=== PATIENT | male | born 1975 | race Caucasian/White ===

== ENCOUNTER 2019-07-22 14:01 | Inpatient (IN) | payer BC, SELFPAY ==
[2019-07-22] VITALS (13 sets, daily range): BP systolic 116–164; BP diastolic 68–111; PULSE 82–108; RESP 16–18; TEMP 36.6–38.1; O2SAT 92–100; BMI 39.8
--- NOTE | 2019-07-22 | COL_PTH ---
PATIENT: AKSHAT VALENCIA LOC: MS3 U#:[id number] AGE/SX: 44/M ROOM: DC314 RE07/22/[address]: Dr. Frankie Hickman MD : 1975 BED: 1 DIS: 07/25/2019 SPEC #: [id number] RECD: 07/22/19 20:17 STATUS: RADHA REAdair #: [id number] SANDRA: 07/22/19 00:[address]: Frankie Hickman DEPT: SURGICAL PATHOLOGY RECD BY: Akshat Butt ENTERED: 07/24/19 08:18 SP TYPE: COLON OTHR DR: Dr. Chago Campos MD Tissues: A - Colon, NOS B - Colon Donuts Procedures: Surgery Specimen Level IV Surgery Specimen Level V HEADER OPERATION: Laparoscopy converted to open sigmoid colectomy PRE-OP DIAGNOSIS: Perforation of sigmoid colon due to diverticulitis TISSUE SUBMITTED: A - Sigmoid colon, B - Donuts MICROSCOPIC DIAGNOSIS A. Sigmoid colon, segmental colectomy: Diverticular disease of colon. One out of one lymph node with no pathologic change. Subserosal microabscess and acute serositis. B. Mucosal donuts, excision: No pathologic change. AM:paz 07/25/19 MICROSCOPIC DESCRIPTION Slides are reviewed. GROSS DESCRIPTION A - Received in fixative is one container labeled with the patient's name and designated sigmoid colon. The specimen consists of a 10.3 cm segment of bowel with permanent fat wrapping. No gross perforations are identified. Also present separate in the specimen container is a 2.5 cm segment of bowel with an average diameter of 2 cm. Serial sections do not reveal mass lesions in either of the bowel segments. The pericolic soft tissue in an area measuring 2 x 2 x 1.5 cm is grayish-isbell in color and indurated; however, no distinct mass lesion is identified. Serial sections reveal multiple diverticula and none of which appear to have perforated through the bowel well. Cnc Operator Machinist sections are submitted in six cassettes as follows: 1-5 - diverticula with adjacent soft tissue, 6 - pericolic fatty tissue with area of induration. B - Received in fixative is one container labeled with the patient's name and designated donuts. The specimen consists of one mucosal donut measuring 1.5 cm in diameter and 1.2 cm in thickness. No mass lesions are identified. Also present in the specimen container are two irregular fragments of isbell tissue resembling portions of mucosal donut. These fragments in aggregate measure 2 x 1.5 x 0.5 cm. These fragments are inked and submitted along with claims customer service representative sections of the identifiable mucosal donut in one cassette. / AM:paz 07/24/19 TC:2 CPT: 17520, 75086
--- NOTE | 2019-07-22 14:14 | CT_ITS ---
We are attempting to reach an attending provider to discuss findings. An addendum with communication details will be sent when the communication is complete. STUDY: CT ABDOMEN AND PELVIS WITHOUT CONTRAST REASON FOR EXAM: Male, 44 years old. Groin/scrotal pain today, bladder spasms, prior umbilical hernia repair. RADIATION DOSAGE (If Supplied By Facility): CTDIvol = ( 23.04 ) mGy, DLP = ( 1513.93 ) mGycm TECHNIQUE: Transaxial images were obtained from the dome of the diaphragm to the symphysis pubis without oral contrast, and without intravenous contrast. Sagittal and coronal images were reconstructed. Individualized dose optimization techniques were used for this CT. COMPARISON: None. FINDINGS: The visualized lung bases are unremarkable. The visualized portions of the heart are within normal limits. There is decreased attenuation of the liver consistent with steatosis. Normal gallbladder and extrahepatic biliary system. Normal spleen. Normal pancreas. Normal bilateral adrenal glands. Normal right kidney. Normal left kidney. Normal visualized stomach. Normal small intestine. There is diverticulosis, with thickening of the sigmoid (axial image #160 series 2) wall, and pericolonic inflammation changes consistent with acute diverticulitis. There is adjacent extraluminal air, consistent with perforation. There is free air ventral to the liver as well. There is no abscess. The appendix is visualized and appears normal. Normal abdominal aorta. Normal inferior vena cava. Normal retroperitoneum. Normal urinary bladder. Normal abdominal wall. There are diffuse degenerative changes of the visualized lumbar spine. CT/Abdomen/Pelvis without Cont IMPRESSION: Acute diverticulitis with perforation and free intraperitoneal air. Electronically Signed: Sivan Rincon MD at 15:21 EST Tel , Service support ,
[2019-07-22 14:38] LABS: Absolute Lymphocyte Count 1.05 X10^3/uL (0.83-4.51); Absolute Neutrophil Count 10.8 X10^3/uL (2.0-7.7); Basophil# 0.03 X10^3/uL; Basophil% 0.2 % (0-1); Eosinophil# 0.07 X10^3/uL; Eosinophils% 0.6 % (0-5); Hematocrit 48.5 % (40-54); Hemoglobin 15.9 g/dL (13.0-16.5); Lymphocyte # 1.05 X10^3/ul (4.0); Lymphocyte % 8.3 % (19-41); Mean Corp Hgb Conc 32.8 g/dL (32-36); Mean Corpuscular Hgb 30.6 pg (27.0-32.0); Mean Corpuscular Volume 93.4 fL (80-94); Mean Platelet Vol. 11.3 fl (6.2-12.0); Monocyte# 0.64 X10^3/uL; Monocyte% 5.1 % (0-10); NRBC Flagged by Analyzer 0 % (0-5); Neutrophil # 10.78 X10^3/uL (2.7-7.7); Neutrophil % 85.5 % (47-70); Platelet Count 181 K/mm3 (150-450); RBC Distribution Width CV 12.8 % (11.6-14.6); RBC Distribution Width SD 43.8 fl (35.1-43.9); Red Blood Count 5.19 M/mm3 (4.6-6.2); White Blood Count 12.6 K/mm3 (4.4-11.0)
[2019-07-22] MEDS: Ketorolac 30 MG/ML Syringe IV (14:42)
[2019-07-22] MEDS: Ondansetron 4 MG/2 ML Vial IV (14:43)
[2019-07-22] MEDS: Morphine 4 MG/ML Syringe IV ×2 (14:44→16:27)
[2019-07-22] MEDS: 0.9% Normal Saline 1,000 ML 250 ML IV (14:46)
[2019-07-22 14:57] LABS: Anion Gap 4 (5-15); BUN 16 mg/dL (7-18); BUN/Creat Ratio 14.3 RATIO (10-20); Calcium,Total 9.1 mg/dL (8.5-10.1); Chloride 110 mmol/L (98-107); Creatinine, Serum 1.12 mg/dL (0.70-1.30); EST Glomerular Filtration Rate 75 mL/min (>60); Est Glom Filt Rate - Afr Amer 91 mL/min (>60); Estimated Creatinine Clearance 96.84 ml/min; Glucose 103 mg/dL (74-106); Potassium 3.7 mmol/L (3.5-5.1); Sodium Level 143 mmol/L (136-145)
--- NOTE | 2019-07-22 15:37 | EKG12_ITS ---
Test Reason : PREOP Blood Pressure : / mmHG Vent. Rate : 104 BPM Atrial Rate : 104 BPM P-R Int : 138 ms QRS Dur : 096 ms QT Int : 346 ms P-R-T Axes : 052 058 016 degrees QTc Int : 454 ms Sinus tachycardia Otherwise normal ECG Confirmed by MARILU DMUONT MD ([id number]), newspaper photo editor MONICA BETANCUR ([id number]) on 07/24/2019 3:14:54 PM Referred By: APTL
--- NOTE | 2019-07-22 15:42 | ED.VIS.GI ---
History of Present Illness Informant: Patient - Abdominal Pain/Flank Pain Onset: Days - 3 days Context: Gradual Onset Timing: Continuous Quality: Aching, Dull Location: - - Suprapubic Current Severity: Severe Maximum Severity: Severe Worsened by: Car ride, Movement Relieved by: Remaining Still - Nausea/Vomiting/Emesis GI Symptom: Nausea. Negative for: Vomiting - Diarrhea/Melena/Hematochezia GI Symptom: Negative for: Diarrhea, Melena, Hematochezia Associated Symptoms: Frequency, Urgency. Negative for: Dysuria, Hematuria Narrative: 44-year-old male presents to the emergency department with abdominal pain. It is mostly in his suprapubic area. It radiates to his groin. It is been there for about 3 days and has progressively worsened. He initially saw his primary care physician. He had a urinalysis done that showed hematuria he was given pain medications. His symptoms have worsened which prompted his visit to the emergency department. Prior to arrival he developed chills and nausea. He feels lightheaded. No vomiting. No documented fever. No diarrhea melena or hematochezia. He has a lot of frequency and urgency of urination but no dysuria or hematuria. No history of kidney stones. No testicular pain or swelling. The pain does not radiate into his legs. He denies any lower extremity numbness tingling or weakness. Prior similar symptoms: No Recent Illness/Hospitalization: No <Frankie Venegas - Last Filed: 07/22/19 16:19> <Stefan Zuleta - Last Filed: 07/22/19 20:28> Chief Complaint: Male Pain/Injury Past Medical History Past Medical History: - - Asthma, diverticulitis Lives: With Family Smoking Status: Never smoker Alcohol: Occasional Drugs: None - Family History Maternal Family History: Reports: No pertinent history <Frankie Venegas - Last Filed: 07/22/19 16:19> <Stefan Zuleta - Last Filed: 07/22/19 20:28> - Allergies and Home Meds Allergies/Adverse Reactions: Allergies No Known Allergies Allergy (Verified 12/04/14 16:15) Review of Systems All systems negative except as indicated General: Reports: Chills, Fever, Malaise Eyes: Denies: Visual changes - bilaterally, Blurred Vision - bilaterally, Diplopia ENT: Denies: Rhinorrhea, Sore throat Cardiovascular: Denies: Chest pain, Palpitations, Heart racing Respiratory: Denies: Dyspnea, Cough, Sputum Gastrointestinal: Reports: Abdominal pain, Nausea. Denies: Vomiting, Diarrhea, Constipation, Melena, Hematochezia Genitourinary: Reports: Frequency. Denies: Dysuria, Hematuria Musculoskeletal: Denies: Myalgias, Arthralgias, Neck pain, Back pain, Extremity Pain Skin: Denies: Rash, Abscess, Abrasions, Wounds Neurological: Denies: Headache, Weakness, Parasthesia, Numbness Hematologic: Denies: Easy bruising, Easy bleeding <Frankie Venegas - Last Filed: 07/22/19 16:19> Physical Exam Vital Signs/Narrative: Vital Signs Temp Pulse Resp BP Pulse Ox 07/22/19 14:02 97.9 F 82 16 153/85 H 100 Inital Vital Signs reviewed: Yes General: Well nourished, Well developed, No Acute Distress Head: Normocephalic, Atraumatic Eyes: Perrl, EOMI ENT: Moist mucous membranes Neck: Supple, Nontender Cardiovascular: Regular rate, Regular rhythm, No murmurs Respiratory: No distress, CTA bilaterally, Chest nontender Abdomen: Soft, Normal bowel sounds, No masses, Tender - Patient is diffusely tender on palpation but worse in the right and left lower quadrant as well as suprapubic region. There was no guarding or rebound tenderness noted.. Negative for: Guarding, Rebound tenderness Back: Nontender, Normal Inspection Extremities: Nontender, No edema Skin: Normal color, No rash Neurological: Alert, Oriented x3 Psychological: Normal affect, Normal Mood <Frankie Venegas - Last Filed: 07/22/19 16:19> Diagnostic/Tx/Re-eval CT: Abdomen and Pelvis - Medical Decision Making Patient was given IV fluids, morphine and Zofran. CBC, BMP remarkable for an elevated white blood cell count 12.6. CT scan abdomen and pelvis was obtained. I was contacted by the radiologist who told me that the patient has acute diverticulitis with perforation and free intraperitoneal air. I spoke with our on-call surgeon Dr. Hickman. He reviewed the CT scan and he states that he will take the patient to the operating room for further management. We did obtain blood cultures and a lactic acid. He was given IV Zosyn. His pain is under control at this time on serial repeat examinations. Impressions Abdomen/Pelvis CT 07/22/19 14:14 IMPRESSION: Acute diverticulitis with perforation and free intraperitoneal air. Electronically Signed: Sivan Rincon MD at 15:21 EST Tel , Service support , ADDENDUM: 07/22/19 1534 IMPRESSION: Acute diverticulitis with perforation and free intraperitoneal air. N.B. : The above information has been verbally conveyed by Sivan Rincon MD to TRACI Quintana, on 07/22/2019 15:27:57 (ET). Electronically Signed: Sivan Rincon MD at 15:21 EST Tel , Service support , 07/22/19 14:14 Abdomen/Pelvis without Cont [CT] Stat Laboratory Results 07/22/19 07/22/19 14:31 14:31 WBC 12.6 H RBC 5.19 Hgb 15.9 Hct 48.5 MCV 93.4 MCH 30.6 MCHC 32.8 RDW Std Deviation 43.8 RDW Coeff of Emir 12.8 Plt Count 181 MPV 11.3 Immature Gran % (Auto) 0.300 Neut % (Auto) 85.5 H Lymph % (Auto) 8.3 L Mccone % (Auto) 5.1 Eos % (Auto) 0.6 Baso % (Auto) 0.2 Absolute Neuts (auto) 10.8 H Absolute Lymphs (auto) 1.05 Nucleated RBC % 0 Sodium 143 Potassium 3.7 Chloride 110 H Carbon Dioxide 29.0 Anion Gap 4 L BUN 16 Creatinine 1.12 Estim Creat Clear Calc 96.84 Est GFR (MDRD) Af Amer 91 Est GFR (MDRD) Non-Af 75 BUN/Creatinine Ratio 14.3 Glucose 103 Calcium 9.1 <Frankie Venegas - Last Filed: 07/22/19 16:19> - Medical Decision Making Attending note: Seen and evaluated with yardmaster. Agree with plan of work-up. Performed on [id number] evaluation. Increasing lower abdominal pain past 4 days. No fevers. Pain into his scrotum. Worsening pain today came to the ED. History of diverticulitis 2015. Patient examined myself after pain medicines and work-up, abdomen was soft, no diffuse tenderness. Work-up noted white count 12.6, CT scan abdomen pelvis noted sigmoid diverticulitis with perforation and free air. Nontoxic, symptoms current controlled, cultures were sent in the lab, he started on Zosyn. He had previously seen [facility] surgeon Dr. Sousa, who currently does not cover at this hospital anymore. Discussed options and he would like [facility] surgeons therefore on-call physician Dr. Messer was contacted evaluate patient and patient taking to the OR. Critical CARE time: 40 minutes <Stefan Zuleta - Last Filed: 07/22/19 20:28> Critical care time (excluding procedures): Discussing w/Patient &/or Family/Court Bailiff Or Sheriff <Stefan Zuleta - Last Filed: 07/22/19 20:28> ED Disposition <Frankie Venegas - Last Filed: 07/22/19 16:19> <Stefan Zuleta - Last Filed: 07/22/19 20:28> - Plan for ED Patient: Disposition: Acute Care Hospital [facility] Diagnosis: Acute diverticulitis of intestine, Free intraperitoneal air, Sepsis
[2019-07-22 16:04] LABS: Lactic Acid 1.3 mmol/L (0.4-1.9)
--- NOTE | 2019-07-22 16:08 | PCM.HP.STD ---
Problem List (1) Perforation of sigmoid colon due to diverticulitis Status: Acute History of Present Illness Date of Admission: 07/22/19 The patient is a 44 year old M with abdominal pain since 3 days ago. The patient reports that he has been having lower suprapubic pain for 3 days with no fevers or chills. He has had diverticulitis in the past and has had a colonoscopy subsequent to that. Past Medical History Allergies No Known Allergies Allergy (Verified 12/04/14 16:15) Home Medications: Ambulatory Orders Medication Instructions Recorded Hydrocodone Bitart/Apap 5-325 1 - 2 tablet PO Q4H PRN PRN #12 12/04/14 [Aurelia 5/325] tablet DiphenhydrAMINE [Benadryl] 50 mg PO Q6H #30 capsule 02/05/15 Famotidine [Pepcid] 20 mg PO BID #10 tablet 02/05/15 predniSONE tablet 60 mg PO DAILY #15 tablet 02/05/15 Albuterol IH (ProAir) [Proair Hfa 1 - 2 puff INHALATION Q4H PRN PRN 07/22/19 (SP)Vent Pts] Surgical History: herniorrhaphy - Umbilical hernia repair with no mesh Lives: With Family Smoking Status: Never smoker Alcohol: Occasional Drugs: None - *Family History Maternal History Items: No pertinent history Review of Systems Constitutional: Denies: Anorexia, Fever Eyes: Denies: Blurred vision HEENT: Denies: Difficulty Swallowing Cardiovascular: Denies: Chest Pain, Chest Tightness Respiratory: Denies: Cough, Shortness of Breath Gastrointestinal: Reports: Abdominal Pain. Denies: Constipation, Diarrhea, Nausea, Vomiting Skin: Denies: Jaundice Psychiatric: Denies: Anxiety Hematologic/ Lymphatic: Denies: Anemia VTE Information - Inpt Only VTE Present on Admission: No VTE Mechan Device Prophylaxis: SCD's Patient Problems: Active and Suspected Problems Acute diverticulitis of intestine (Acute) Free intraperitoneal air (Acute) Sepsis (Acute) Perforation of sigmoid colon due to diverticulitis (Acute) - Physical Exam Vitals/I&O's: Vital Signs Temp Pulse Resp BP Pulse Ox 99.3 F H 106 H 16 135/111 H 98 07/22/19 16:06 07/22/19 16:06 07/22/19 16:06 07/22/19 16:06 07/22/19 16:06 Oxygen Delivery Method Room Air Weight: 310 lb Body Mass Index (BMI) 39.8 General: Alert, Oriented x3 Neck: No JVD Lungs: Normal air movement Cardiovascular: Regular rate, Regular Rhythm Abdomen: Soft, Non-Distended, Tender Laboratory Results 07/22/19 14:31: WBC 12.6 H, RBC 5.19, Hgb 15.9, Hct 48.5, MCV 93.4, MCH 30.6, MCHC 32.8, RDW Std Deviation 43.8, RDW Coeff of Emir 12.8, Plt Count 181, MPV 11.3, Immature Gran % (Auto) 0.300, Neut % (Auto) 85.5 H, Lymph % (Auto) 8.3 L, [place] % (Auto) 5.1, Eos % (Auto) 0.6, Baso % (Auto) 0.2, Absolute Neuts (auto) 10.8 H, Absolute Lymphs (auto) 1.05, Nucleated RBC % 0 07/22/19 14:31: Sodium 143, Potassium 3.7, Chloride 110 H, Carbon Dioxide 29.0, Anion Gap 4 L, BUN 16, Creatinine 1.12, Estim Creat Clear Calc 96.84, Est GFR (MDRD) Af Amer 91, Est GFR (MDRD) Non-Af 75, BUN/Creatinine Ratio 14.3, Glucose 103, Calcium 9.1 07/22/19 15:28: Lactic Acid 1.3 Clinical Impression(s) from Imaging Studies Abdomen/Pelvis CT 07/22/19 14:14 IMPRESSION: Acute diverticulitis with perforation and free intraperitoneal air. Electronically Signed: Sivan Rincon MD at 15:21 EST Tel , Service support , ADDENDUM: 07/22/19 1530 IMPRESSION: Acute diverticulitis with perforation and free intraperitoneal air. N.B. : The above information has been verbally conveyed by Sivan Rincon MD to TRACI Quintana, on 07/22/2019 15:27:57 (ET). Electronically Signed: Sivan Rincon MD at 15:21 EST Tel , Service support , Current Medications Sodium Chloride () 1,000 mls @ 250 mls/hr IV .Q4H FRANC Last Admin: 07/22/19 14:46 Dose: 250 mls/hr Documented by: Assessment/Plan All Active Problems Acute diverticulitis of intestine (Acute) Free intraperitoneal air (Acute) Sepsis (Acute) Perforation of sigmoid colon due to diverticulitis (Acute) 44-year-old male with perforated sigmoid diverticulitis 1. The patient has an elevated white count and abdominal pain. He has guarding. He had a CT scan which shows diverticulitis with free abdominal air. I recommend laparoscopic possible open sigmoid colectomy. I discussed this with him in detail. I discussed that due to his weight laparoscopic surgery might not be possible but I would try to perform an anastomosis as well. I explained the risks including but not limited to bleeding, infection, injury to surrounding organs such as the ureter, bladder, bowel. I described the risks of infection subsequently as well as anastomotic leak. The patient would like to try anastomosis instead of have a colostomy but I did inform the colostomy would be possible as well as open surgery being possible. Patient understands all the risks and is well to proceed with surgery. He has been given a dose of Zosyn. OR team is on the way in. Frankie Hickman MD Pager: [facility] [address] [place] [address], [address] [place] [address] Office:
--- NOTE | 2019-07-22 16:31 | ED.RN ---
MOTHER'S CELL PHONE [phone]
[2019-07-22] MEDS: Bupivacaine 0.25% 30 ML Vial (19:37)
--- NOTE | 2019-07-22 20:58 | PCM.OPRPT ---
Problem List (1) Perforation of sigmoid colon due to diverticulitis Status: Acute Report of Operation Date of Procedure: 07/22/19 Pre-Operative Diagnosis: Perforated sigmoid diverticulitis Post-Operative Diagnosis: Same Surgery/Procedure Performed:: Laparoscopic converted open sigmoid colectomy with primary anastomosis Description of Surgical Findings:: Inflammation of the sigmoid colon with peritonitis Specimen's removed: Sigmoid colon, donuts Description of Procedure: Patient was brought back to the operating room and general anesthesia was induced. He was placed in lithotomy position and the rectum was irrigated with a Betadine saline solution through mushroom tip catheter. Next a Gamboa was placed and clear urine was returned. The abdomen was then prepped and draped in usual sterile fashion. A small incision was made in the left upper quadrant and a 5 mm port was placed using Visiport technique into the abdomen. The abdomen was insufflated to 15 mmHg. The camera was placed into the abdomen and there were no injuries from entry. A second 5 mm port was placed in the right lower quadrant. Using graspers the pelvis was inspected. There was no way to proceed laparoscopically. The sigmoid colon was plastered in the pelvis and unable to be mobilized using laparoscopic instruments. The patient was also very obese and there was a lot of intra-abdominal fat. Next the surgery was converted to an open procedure and a midline incision was made from just above the umbilicus to the suprapubic area. The incision was deepened to the fascia and the fascia was incised. A wound protector was placed and a Bookwalter retractor was used to retract the incision and small bowel. The lateral attachments to the sigmoid colon were taken down using electrocautery and the sigmoid colon was medialized. Just proximal to the area of inflammation a 75 stapler was used to come across the proximal sigmoid colon. Enseal was used to take down the mesentery to the sigmoid colon which was inflamed until the rectum was encountered. A curvilinear stapler was then used to come across the proximal rectum. The Enseal was used to take the rest of the mesentery and the specimen was removed. The pelvis was checked for hemostasis and this was obtained using the Enseal. The abdomen was irrigated and suctioned dry. There was good hemostasis in the pelvis. Next the staple line was taken from the proximal sigmoid colon and sizers were used to determine a 25 EEA stapler was the largest that would be able to be placed. The anvil was placed into the distal colon and the pursestring suture with 0 Prolene was placed. The pericolonic appendages in this area were removed using electrocautery until there was a good clean colon for the staple line. Next sizer was placed in the rectum and then the 25 EEA stapler was placed through the anus and into the rectal vault. The spike was brought through the staple line and the anvil was connected to it and the stapler was closed and fired. The stapler was then removed. The rigid sigmoidoscope was then placed into the anal canal and inflated using pressure above the anastomosis to clamp. There was no leak. The anterior staple line was reinforced using 3-0 silk sutures to imbricate the staple line. This was checked once more for leak and there was still no leak. The abdomen was irrigated and suctioned dry once more. The omentum was placed over the small bowel and into the pelvis and the wound protector was removed. Gown and gloves were changed by all staff and then the fascia was closed with running #1 PDS from the top and bottom meeting in the middle. The subcutaneous tissue was irrigated and suctioned dry and the skin was anesthetized with Marcaine. The small laparoscopic incisions were closed with interrupted 4-0 Monocryl suture. The large midline incision was closed with luis. Bandages were then applied. The patient was taken to PACU in stable condition with a Gamboa in place. Patient tolerated the procedure well. - Admit VTE Documentation VTE Mechan Device Prophylaxis: SCD's
[2019-07-22] MEDS: 0.9% Normal Saline 1,000 ML 125 ML IV (21:28)
[2019-07-22] MEDS: Morphine 2 MG/ML Syringe IV (21:37)
[2019-07-22 21:40] LABS: Color, Urine Yellow (Yellow); Glucose, Dipstick Normal (Normal); Ketone-Dipstick Negative (Negative); Leukocyte Esterase-Dipstick Negative /ul (Negative); Nitrite-Dipstick Negative (Negative); Occult Blood-Urine 50 /ul (Negative); Protein-Dipstick 30 mg/dl (Negative); Specific Gravity, Urine 1.025 (1.002-1.030); Urine Bilirubin Dipstick Negative (Negative); Urine Clarity Clear (Clear); Urine Urobilinogen 1 mg/dl (Normal)
[2019-07-22 21:59] LABS: Bacteria RARE /hpf (None Seen); Mucous, Urine 1+ /hpf (<or=2+); Red Blood Cells-Urine 0-5 SEEN /hpf (0-5); Squamous Epithelial Cells - UA 0-5 SEEN /hpf (0-5); White Blood Cells 0-5 SEEN /hpf (0-5)
[2019-07-22] MEDS: Ketorolac 15 MG/ML Vial IV (23:42)
[2019-07-22] MEDS: 0.9% Saline Lock 10 ML Syringe IV (23:42)
[2019-07-23] VITALS (8 sets, daily range): BP systolic 111–136; BP diastolic 64–81; PULSE 80–96; RESP 16–18; TEMP 37–37.6; O2SAT 91–96
[2019-07-23] MEDS: Morphine 2 MG/ML Syringe IV ×5 (01:46→23:41)
[2019-07-23] MEDS: 0.9% Saline Lock 10 ML Syringe IV ×6 (01:47→17:12)
[2019-07-23] MEDS: 0.9% Normal Saline 1,000 ML 125 ML IV ×3 (06:38→23:41)
[2019-07-23 06:49] LABS: Absolute Neutrophil Count 14.2 X10^3/uL (2.0-7.7); Basophil# 0.01 X10^3/uL; Basophil% 0.1 % (0-1); Eosinophil# 0.24 X10^3/uL; Eosinophils% 1.5 % (0-5); Hematocrit 42.6 % (40-54); Hemoglobin 13.7 g/dL (13.0-16.5); Mean Corp Hgb Conc 32.2 g/dL (32-36); Mean Corpuscular Hgb 30.2 pg (27.0-32.0); Mean Corpuscular Volume 93.8 fL (80-94); Mean Platelet Vol. 11.8 fl (6.2-12.0); Monocyte# 0.59 X10^3/uL; Monocyte% 3.7 % (0-10); NRBC Flagged by Analyzer 0 % (0-5); Neutrophil # 14.18 X10^3/uL (2.7-7.7); Neutrophil % 89.4 % (47-70); Platelet Count 173 K/mm3 (150-450); RBC Distribution Width CV 13.2 % (11.6-14.6); RBC Distribution Width SD 45.2 fl (35.1-43.9); Red Blood Count 4.54 M/mm3 (4.6-6.2); White Blood Count 15.9 K/mm3 (4.4-11.0)
[2019-07-23 07:14] LABS: Anion Gap 5 (5-15); BUN 14 mg/dL (7-18); BUN/Creat Ratio 12.5 RATIO (10-20); Chloride 111 mmol/L (98-107); Creatinine, Serum 1.12 mg/dL (0.70-1.30); EST Glomerular Filtration Rate 75 mL/min (>60); Est Glom Filt Rate - Afr Amer 91 mL/min (>60); Estimated Creatinine Clearance 96.84 ml/min; Glucose 129 mg/dL (74-106); Magnesium 2.1 mg/dL (1.6-2.6); Phosphorus 2.6 mg/dL (2.5-4.9); Potassium 4.2 mmol/L (3.5-5.1); Sodium Level 143 mmol/L (136-145)
--- NOTE | 2019-07-23 08:00 | PN.SURG_ITS ---
Patient Problems: Active and Suspected Problems Acute diverticulitis of intestine (Acute) Free intraperitoneal air (Acute) Sepsis (Acute) Perforation of sigmoid colon due to diverticulitis (Acute) Subjective: Patient is still complaining of abdominal pain but he is not having any nausea or vomiting. - Physical Exam Vitals/I&O's: Vital Signs Temp Pulse Resp BP Pulse Ox 99.6 F H 88 18 111/69 96 07/23/19 06:24 07/23/19 06:24 07/23/19 06:24 07/23/19 06:24 07/23/19 06:24 Oxygen Flow Rate (L/min) 2 Oxygen Delivery Method Nasal Cannula Weight: 310 lb Body Mass Index (BMI) 39.8 Intake and Output for Last 24 Hours 07/21/19 07/22/19 07/24/19 23:59 23:59 00:59 Intake Total 1268.33 / 1268.33 1025.33 / 1025.33 Output Total 425 / 425 300 / 300 Balance 843.33 / 843.33 725.33 / 725.33 General: Alert, Oriented x3 Neck: No JVD Cardiovascular: Regular rate, Regular Rhythm Abdomen: Soft, Non-Distended, Tender Laboratory Results 07/22/19 14:31: WBC 12.6 H, RBC 5.19, Hgb 15.9, Hct 48.5, MCV 93.4, MCH 30.6, MCHC 32.8, RDW Std Deviation 43.8, RDW Coeff of Emir 12.8, Plt Count 181, MPV 11.3, Immature Gran % (Auto) 0.300, Neut % (Auto) 85.5 H, Lymph % (Auto) 8.3 L, [place] % (Auto) 5.1, Eos % (Auto) 0.6, Baso % (Auto) 0.2, Absolute Neuts (auto) 10.8 H, Absolute Lymphs (auto) 1.05, Nucleated RBC % 0 07/22/19 14:31: Sodium 143, Potassium 3.7, Chloride 110 H, Carbon Dioxide 29.0, Anion Gap 4 L, BUN 16, Creatinine 1.12, Estim Creat Clear Calc 96.84, Est GFR (MDRD) Af Amer 91, Est GFR (MDRD) Non-Af 75, BUN/Creatinine Ratio 14.3, Glucose 103, Calcium 9.1 07/22/19 15:28: Lactic Acid 1.3 07/22/19 20:45: Urine Color Yellow, Urine Clarity Clear, Urine pH 5.0, Ur Specific [place] 1.025, Urine Protein 30 H, Urine Glucose (UA) Normal, Urine Ketones Negative, Urine Occult Blood 50 H, Urine Nitrite Negative, Urine Bilirubin Negative, Urine Urobilinogen 1 H, Ur Leukocyte Esterase Negative, Urine RBC 0-5 SEEN, Urine WBC 0-5 SEEN, Ur Squamous Epith Cells 0-5 SEEN, Urine Bacteria RARE, Urine Mucus 1+ 07/23/19 05:50: WBC 15.9 H, RBC 4.54 L, Hgb 13.7, Hct 42.6, MCV 93.8, MCH 30.2, MCHC 32.2, RDW Std Deviation 45.2 H, RDW Coeff of Emir 13.2, Plt Count 173, MPV 11.8, Immature Gran % (Auto) 0.300, Neut % (Auto) 89.4 H, Lymph % (Auto) 5.0 L, [place] % (Auto) 3.7, Eos % (Auto) 1.5, Baso % (Auto) 0.1, Absolute Neuts (auto) 14.2 H, Absolute Lymphs (auto) 0.80 L, Nucleated RBC % 0 07/23/19 05:50: Sodium 143, Potassium 4.2, Chloride 111 H, Carbon Dioxide 27.0, Anion Gap 5, BUN 14, Creatinine 1.12, Estim Creat Clear Calc 96.84, Est GFR (MDRD) Af Amer 91, Est GFR (MDRD) Non-Af 75, BUN/Creatinine Ratio 12.5, Glucose 129 H, Calcium 8.0 L, Phosphorus 2.6, Magnesium 2.1 Current Medications Acetaminophen (Tylenol) 650 mg PO Q4H PRN PRN PRN Reason: Pain (-02/23) or Fever Albuterol Sulfate (Ventolin Aerosols) 2.5 mg INHALATION Q4H PRN PRN PRN Reason: WHEEZING Enoxaparin Sodium (Lovenox) 40 mg SC DAILY [facility] Sodium Chloride () 1,000 mls @ 125 mls/hr IV .Q8H [facility] Last Admin: 07/23/19 06:38 Dose: 125 mls/hr Documented by: Pantoprazole Sodium 40 mg/ (Sodium Chloride) 110 mls @ 330 mls/hr IV Q24 [facility] Last Infusion: 07/22/19 22:16 Dose: Infused Documented by: Piperacillin Sod/Tazobactam (Sod 3.375 gm/ Sodium Chloride) 50 mls @ 12.5 mls/hr IV Q8 [facility] Last Admin: 07/23/19 06:34 Dose: 12.5 mls/hr Documented by: Sodium Chloride () 250 mls @ 15 mls/hr IV .[id number] PRN PRN Reason: Saline Flush Last Infusion: 07/23/19 06:38 Dose: 0 mls/hr Documented by: Sodium Chloride () 250 mls @ 15 mls/hr IV .[id number] PRN PRN Reason: Additional IVPB Infusion Ketorolac Tromethamine (Toradol (Bkc)) 15 mg IV Q8H PRN PRN PRN Reason: Pain Score 4-10/10 Stop: 07/24/19 21:07 Last Admin: 07/22/19 23:42 Dose: 15 mg Documented by: Morphine Sulfate () 2 - 4 mg IV Q2H PRN PRN PRN Reason: Pain Score 4-10/10 Last Admin: 07/23/19 06:38 Dose: 2 mg Documented by: Morphine Sulfate () 2 - 4 mg IV Q2H PRN PRN PRN Reason: Pain Score 4-10/10 Ondansetron HCl (Zofran) 4 mg IV Q6H PRN PRN PRN Reason: NAUSEA Sodium Chloride () 10 - 40 ml IV UD PRN PRN Reason: SALINE FLUSH Last Admin: 07/23/19 06:38 Dose: 10 ml Documented by: Medical Necessity - Tobacco Use Smoking Status: Never smoker Assessment/Plan All Active Problems Acute diverticulitis of intestine (Acute) Free intraperitoneal air (Acute) Sepsis (Acute) Perforation of sigmoid colon due to diverticulitis (Acute) 44-year-old male status post open sigmoid colectomy for perforated diverticulitis 1. I encouraged ambulation today. Continue IV antibiotics and n.p.o. status. PPI and DVT prophylaxis. Patient may have ice chips and I will DC his [place]. Continue strict I's and O's. Once the patient starts passing flatus I will start a diet. Frankie Hickman MD Pager: [facility] [address] [place] [address], [address] [place] [address] Office:
[2019-07-23] MEDS: Ketorolac 15 MG/ML Vial IV ×2 (08:21→17:12)
[2019-07-23] MEDS: Enoxaparin 40 MG/0.4 ML Syringe SC (09:46)
[2019-07-23] MEDS: Morphine 4 MG/ML Syringe IV ×2 (09:47→15:54)
[2019-07-23] MEDS: BENZOCAINE/MENTHOL 1 LOZENGE MUCOUS MEM ×3 (10:43→21:22)
[2019-07-24 02:25] VITALS: BP 133/78; PULSE 100; RESP 16; TEMP 37.5; O2SAT 96
[2019-07-24] MEDS: Morphine 2 MG/ML Syringe IV (05:18)
[2019-07-24] MEDS: BENZOCAINE/MENTHOL 1 LOZENGE MUCOUS MEM (05:23)
[2019-07-24 06:43] LABS: Absolute Lymphocyte Count 1.31 X10^3/uL (0.83-4.51); Absolute Neutrophil Count 10.5 X10^3/uL (2.0-7.7); Basophil# 0.02 X10^3/uL; Basophil% 0.2 % (0-1); Eosinophil# 0.03 X10^3/uL; Eosinophils% 0.2 % (0-5); Hematocrit 40.8 % (40-54); Hemoglobin 13.2 g/dL (13.0-16.5); Lymphocyte # 1.31 X10^3/ul (4.0); Lymphocyte % 10.3 % (19-41); Mean Corp Hgb Conc 32.4 g/dL (32-36); Mean Corpuscular Hgb 30.9 pg (27.0-32.0); Mean Corpuscular Volume 95.6 fL (80-94); Mean Platelet Vol. 11.4 fl (6.2-12.0); Monocyte# 0.81 X10^3/uL; Monocyte% 6.3 % (0-10); NRBC Flagged by Analyzer 0 % (0-5); Neutrophil # 10.53 X10^3/uL (2.7-7.7); Neutrophil % 82.5 % (47-70); Platelet Count 167 K/mm3 (150-450); RBC Distribution Width CV 13.5 % (11.6-14.6); RBC Distribution Width SD 47.8 fl (35.1-43.9); Red Blood Count 4.27 M/mm3 (4.6-6.2); White Blood Count 12.8 K/mm3 (4.4-11.0)
[2019-07-24] MEDS: 0.9% Normal Saline 1,000 ML 125 ML IV ×3 (06:46→22:53)
[2019-07-24 07:07] LABS: Anion Gap 4 (5-15); BUN 14 mg/dL (7-18); BUN/Creat Ratio 14.4 RATIO (10-20); Calcium,Total 8.3 mg/dL (8.5-10.1); Chloride 114 mmol/L (98-107); Creatinine, Serum 0.97 mg/dL (0.70-1.30); EST Glomerular Filtration Rate 89 mL/min (>60); Est Glom Filt Rate - Afr Amer 108 mL/min (>60); Estimated Creatinine Clearance 111.81 ml/min; Glucose 99 mg/dL (74-106); Potassium 3.8 mmol/L (3.5-5.1); Sodium Level 144 mmol/L (136-145)
--- NOTE | 2019-07-24 08:15 | PN.SURG_ITS ---
Patient Problems: Active and Suspected Problems Acute diverticulitis of intestine (Acute) Free intraperitoneal air (Acute) Sepsis (Acute) Perforation of sigmoid colon due to diverticulitis (Acute) Subjective: Patient still complaining of pain. No flatus yet. No nausea or vomiting. - Physical Exam Vitals/I&O's: Vital Signs Temp Pulse Resp BP Pulse Ox 99.5 F H 100 16 133/78 H 96 07/24/19 02:25 07/24/19 02:25 07/24/19 02:25 07/24/19 02:25 07/24/19 02:25 Oxygen Flow Rate (L/min) 2 Oxygen Delivery Method Nasal Cannula Weight: 310 lb Body Mass Index (BMI) 39.8 Intake and Output for Last 24 Hours 07/22/19 07/23/19 07/24/19 22:59 23:59 23:59 Intake Total 995.67 / 995.67 Output Total 575 / 575 Balance 420.67 / 420.67 General: Alert, Oriented x3 Neck: No JVD Cardiovascular: Regular rate, Regular Rhythm Abdomen: Soft, Non-Distended, Tender Microbiology Past 72 Hours 07/22/19 15:28 Blood Culture (Wb) - Arm Left Blood Culture - Preliminary 07/22/19 15:24 Blood Culture (Wb) - Anticubital Right Blood Culture - Preliminary Laboratory Results 07/24/19 06:10: WBC 12.8 H, RBC 4.27 L, Hgb 13.2, Hct 40.8, MCV 95.6 H, MCH 30.9, MCHC 32.4, RDW Std Deviation 47.8 H, RDW Coeff of Emir 13.5, Plt Count 167, MPV 11.4, Immature Gran % (Auto) 0.500, Neut % (Auto) 82.5 H, Lymph % (Auto) 10.3 L, [place] % (Auto) 6.3, Eos % (Auto) 0.2, Baso % (Auto) 0.2, Absolute Neuts (auto) 10.5 H, Absolute Lymphs (auto) 1.31, Nucleated RBC % 0 07/24/19 06:10: Sodium 144, Potassium 3.8, Chloride 114 H, Carbon Dioxide 26.0, Anion Gap 4 L, BUN 14, Creatinine 0.97, Estim Creat Clear Calc 111.81, Est GFR (MDRD) Af Amer 108, Est GFR (MDRD) Non-Af 89, BUN/Creatinine Ratio 14.4, Glucose 99, Calcium 8.3 L Current Medications Acetaminophen (Tylenol) 650 mg PO Q4H PRN PRN PRN Reason: Pain (1-10/10) or Fever Albuterol Sulfate (Ventolin Aerosols) 2.5 mg INHALATION Q4H PRN PRN PRN Reason: WHEEZING Enoxaparin Sodium (Lovenox) 40 mg SC DAILY [facility] Last Admin: 07/23/19 09:46 Dose: 40 mg Documented by: Sodium Chloride () 1,000 mls @ 125 mls/hr IV .Q8H [facility] Last Admin: 07/24/19 06:46 Dose: 125 mls/hr Documented by: Pantoprazole Sodium 40 mg/ (Sodium Chloride) 110 mls @ 330 mls/hr IV Q24 [facility] Last Infusion: 07/23/19 11:05 Dose: Infused Documented by: Piperacillin Sod/Tazobactam (Sod 3.375 gm/ Sodium Chloride) 50 mls @ 12.5 mls/hr IV Q8 [facility] Last Admin: 07/24/19 05:18 Dose: 12.5 mls/hr Documented by: Sodium Chloride () 250 mls @ 15 mls/hr IV .[id number] PRN PRN Reason: Saline Flush Last Infusion: 07/24/19 05:19 Dose: 0 mls/hr Documented by: Sodium Chloride () 250 mls @ 15 mls/hr IV .[id number] PRN PRN Reason: Additional IVPB Infusion Ketorolac Tromethamine (Toradol (Bkc)) 15 mg IV Q8H PRN PRN PRN Reason: Pain Score 4-10/10 Stop: 07/24/19 21:07 Last Admin: 07/23/19 17:12 Dose: 15 mg Documented by: Morphine Sulfate () 2 - 4 mg IV Q2H PRN PRN PRN Reason: Pain Score 4-10/10 Last Admin: 07/24/19 05:18 Dose: 2 mg Documented by: Morphine Sulfate () 2 - 4 mg IV Q2H PRN PRN PRN Reason: Pain Score 4-10/10 Last Admin: 07/23/19 15:54 Dose: 4 mg Documented by: Ondansetron HCl (Zofran) 4 mg IV Q6H PRN PRN PRN Reason: NAUSEA Sodium Chloride () 10 - 40 ml IV UD PRN PRN Reason: SALINE FLUSH Last Admin: 07/23/19 17:12 Dose: 10 ml Documented by: Throat Lozenges (Cepacol Sore Throat Lozenge) 1 lozenge MUCOUS MEM Q2H PRN PRN PRN Reason: sore thoart Last Admin: 07/24/19 05:23 Dose: 1 lozenge Documented by: Medical Necessity - Tobacco Use Smoking Status: Never smoker Assessment/Plan All Active Problems Acute diverticulitis of intestine (Acute) Free intraperitoneal air (Acute) Sepsis (Acute) Perforation of sigmoid colon due to diverticulitis (Acute) 44-year-old male with perforated diverticulitis 1. Patient is still not passing any flatus. His white count is coming down. He is still not passing flatus. Continue sips and chips and IV fluids. Continue antibiotics. He did have bacteremia. I will consult ID for this. Frankie Hickman MD Pager: [facility] [address] [place] [address], [address] [place] [address] Office:
[2019-07-24] MEDS: Enoxaparin 40 MG/0.4 ML Syringe SC (08:42)
[2019-07-24] MEDS: Ketorolac 15 MG/ML Vial IV (08:42)
[2019-07-24 08:45] VITALS: BP 158/89; PULSE 107; RESP 16; TEMP 36.8; O2SAT 99
--- NOTE | 2019-07-24 13:25 | CASEMGMT ---
RN CM Assessment Note Presentation: Open colectomy Intro role of CM and purpose of RN CM assessment to patient in room. Pt is awake, alert and able to participate in assessment. Demographics, PCP and Pharmacy verified. Pt states prior to surgery he was independent. Painful with movement post op. Plan is to return home. Lives with mother who would be able to assist. Pt is on oxygen currently. Discussed with pt- with more activity and using IS, will likely wean prior to dc. PCP: Dr. Chago Campos Specialists: Dr. Sousa prior to admit; Dr. Mccarthy surgeon Preferred Pharmacy: [facility] Insurance: [employer] Prescription Benefit: yes LNOK : Mother, Ashely Cedillo Living Arrangements: Lives independently with his mother. Drives, works. Denies care needs. Discussed post op care and f/u with surgeon. Pt states he has assist if needed including for transportation. Transportation: drives. DME: none HHC/SNF: none Patient DC goals: home on dc with family support. DC PLAN: Home. RN CM advised to contact cm for any concerns/needs that may arise. Davide LIVEN RN ACM
[2019-07-24 14:30] VITALS: BP 143/85; PULSE 90; RESP 18; TEMP 36.5; O2SAT 97
--- NOTE | 2019-07-24 15:28 | CON.PCM_ITS ---
Problem List (1) Perforation of sigmoid colon due to diverticulitis Status: Acute Reason for Consult: bacteremia Consulted by: Dr. Hickman History of Present Illness: The patient is a 44 year old M with h/o salmonella in 2014 who presented 07/21 with one week of progressive lower abd pain, nausea, diarrhea, not feeling well. Some associated fever and chills. No recent abx. No blood in stool. Pain became severe, came to ED, CT showed perforation and diverticulitis. Taken to OR by Dr. Hickman 07/21 for resection. On zosyn, feeling better, passing flatus. Full ROS performed and neg except as noted above. - Medical History Surgical History: reviewed Allergies/Adverse Reactions: Allergies No Known Allergies Allergy (Verified 07/22/19 21:45) Home Medications: Ambulatory Orders Medication Instructions Recorded Albuterol IH (ProAir) [Proair Hfa 1 - 2 puff INHALATION Q4H PRN PRN 07/22/19 (SP)Vent Pts] - Social History Tobacco Use: non-smoker Vital Signs Temp Pulse Resp BP Pulse Ox 98.3 F 107 H 16 158/89 H 99 07/24/19 08:45 07/24/19 08:45 07/24/19 08:45 07/24/19 08:45 07/24/19 08:45 Oxygen Flow Rate (L/min) 2 Oxygen Delivery Method Room Air Weight: 140.614 kg Body Mass Index (BMI) 39.8 Microbiology Past 72 Hours 07/22/19 15:24 Blood Culture - Preliminary Blood Culture (Wb) - Anticubital Right 07/22/19 15:28 Blood Culture - Preliminary Blood Culture (Wb) - Arm Left Laboratory Tests Past 24 Hrs 07/24/19 07/24/19 06:10 06:10 WBC 12.8 H RBC 4.27 L Hgb 13.2 Hct 40.8 MCV 95.6 H MCH 30.9 MCHC 32.4 RDW Std Deviation 47.8 H RDW Coeff of Emir 13.5 Plt Count 167 MPV 11.4 Immature Gran % (Auto) 0.500 Neut % (Auto) 82.5 H Lymph % (Auto) 10.3 L [place] % (Auto) 6.3 Eos % (Auto) 0.2 Baso % (Auto) 0.2 Absolute Neuts (auto) 10.5 H Absolute Lymphs (auto) 1.31 Nucleated RBC % 0 Sodium 144 Potassium 3.8 Chloride 114 H Carbon Dioxide 26.0 Anion Gap 4 L BUN 14 Creatinine 0.97 Estim Creat Clear Calc 111.81 Est GFR (MDRD) Af Amer 108 Est GFR (MDRD) Non-Af 89 BUN/Creatinine Ratio 14.4 Glucose 99 Calcium 8.3 L - Other Studies Radiology: [] reviewed Other Studies: [] Route of nutrition/ use of supplements: [] Nutritional Intake: [] IV Site: [] [place] Catheter: [] - Physical Exam General: Alert, Oriented x3, Cooperative, No apparent distress HEENT: Atraumatic, PERRLA, EOMI Neck: Supple, No Nodes Lungs: Clear to auscultation, Normal air movement Cardiovascular: Regular rate, Regular Rhythm, No murmurs Abdomen: Non Tender, Non-Distended Extremities: No edema Skin: No rashes, Incision - abd, no redness IV Site: Peripheral, without redness Musculoskeletal: No Tenderness to Palpation of Joints or Extremities Neurological: Cranial nerves II-XII grossly intact - Assessment/Plan Antibiotics: [] Assessment/Plan: [] Active and Suspected Problems Acute diverticulitis of intestine (Acute) Free intraperitoneal air (Acute) Sepsis (Acute) Perforation of sigmoid colon due to diverticulitis (Acute) GNR bacteremia due to abd perforation - s/p resection 07/22/[address] Hickman. On zosyn, feeling better, will follow final cx results. Plan on po abx at discharge. Will follow, thank you
[2019-07-24 22:26] VITALS: BP 152/86; PULSE 88; RESP 16; TEMP 36.7; O2SAT 95
[2019-07-25 03:28] VITALS: BP 156/92; PULSE 88; RESP 17; TEMP 36.6; O2SAT 94
[2019-07-25 06:21] LABS: Absolute Lymphocyte Count 1.85 X10^3/uL (0.83-4.51); Basophil# 0.02 X10^3/uL; Basophil% 0.2 % (0-1); Eosinophil# 0.27 X10^3/uL; Eosinophils% 2.5 % (0-5); Hematocrit 39.5 % (40-54); Hemoglobin 12.7 g/dL (13.0-16.5); Lymphocyte # 1.85 X10^3/ul (4.0); Lymphocyte % 16.9 % (19-41); Mean Corp Hgb Conc 32.2 g/dL (32-36); Mean Corpuscular Hgb 30.1 pg (27.0-32.0); Mean Corpuscular Volume 93.6 fL (80-94); Mean Platelet Vol. 11.3 fl (6.2-12.0); Monocyte# 0.72 X10^3/uL; Monocyte% 6.6 % (0-10); NRBC Flagged by Analyzer 0 % (0-5); Neutrophil # 8.03 X10^3/uL (2.7-7.7); Neutrophil % 73.1 % (47-70); Platelet Count 191 K/mm3 (150-450); RBC Distribution Width CV 13.3 % (11.6-14.6); RBC Distribution Width SD 45.9 fl (35.1-43.9); Red Blood Count 4.22 M/mm3 (4.6-6.2)
[2019-07-25 06:56] LABS: Anion Gap 5 (5-15); BUN 11 mg/dL (7-18); BUN/Creat Ratio 12.7 RATIO (10-20); Calcium,Total 8.9 mg/dL (8.5-10.1); Chloride 114 mmol/L (98-107); Creatinine, Serum 0.87 mg/dL (0.70-1.30); EST Glomerular Filtration Rate 101 mL/min (>60); Est Glom Filt Rate - Afr Amer 123 mL/min (>60); Estimated Creatinine Clearance 124.66 ml/min; Glucose 93 mg/dL (74-106); Potassium 3.8 mmol/L (3.5-5.1); Sodium Level 144 mmol/L (136-145)
--- NOTE | 2019-07-25 07:37 | PCM.PN.SRG ---
Patient Problems: Active and Suspected Problems Acute diverticulitis of intestine (Acute) Free intraperitoneal air (Acute) Sepsis (Acute) Perforation of sigmoid colon due to diverticulitis (Acute) Subjective: The patient reports that he is still passing gas and had a bowel movement today with no blood in it. - Physical Exam Vitals/I&O's: Vital Signs Temp Pulse Resp BP Pulse Ox 97.9 F 88 17 156/92 H 94 07/25/19 03:28 07/25/19 03:28 07/25/19 03:28 07/25/19 03:28 07/25/19 03:28 Oxygen Flow Rate (L/min) 2 Oxygen Delivery Method Room Air Weight: 310 lb 0.013 oz Body Mass Index (BMI) 39.8 Intake and Output for Last 24 Hours 07/23/19 07/24/19 07/25/19 23:59 23:59 23:59 Intake Total 3802.42 / 3802.42 425.25 / 425.25 Output Total 1750 / 1750 750 / 750 Balance 2052.42 / 2052.42 -324.75 / -324.75 General: Alert, Oriented x3 Neck: No JVD Lungs: Normal air movement Cardiovascular: Regular rate, Regular Rhythm Abdomen: Soft, Non-Distended Microbiology Past 72 Hours 07/22/19 15:24 Blood Culture (Wb) - Anticubital Right Blood Culture - Preliminary Bacteroides thetaiotaomicron 07/22/19 15:28 Blood Culture (Wb) - Arm Left Blood Culture - Preliminary Laboratory Results 07/25/19 05:45: WBC 11.0, RBC 4.22 L, Hgb 12.7 L, Hct 39.5 L, MCV 93.6, MCH 30.1, MCHC 32.2, RDW Std Deviation 45.9 H, RDW Coeff of Emir 13.3, Plt Count 191, MPV 11.3, Immature Gran % (Auto) 0.700, Neut % (Auto) 73.1 H, Lymph % (Auto) 16.9 L, [place] % (Auto) 6.6, Eos % (Auto) 2.5, Baso % (Auto) 0.2, Absolute Neuts (auto) 8.0 H, Absolute Lymphs (auto) 1.85, Nucleated RBC % 0 07/25/19 05:45: Sodium 144, Potassium 3.8, Chloride 114 H, Carbon Dioxide 25.0, Anion Gap 5, BUN 11, Creatinine 0.87, Estim Creat Clear Calc 124.66, Est GFR (MDRD) Af Amer 123, Est GFR (MDRD) Non-Af 101, BUN/Creatinine Ratio 12.7, Glucose 93, Calcium 8.9 Current Medications Acetaminophen (Tylenol) 650 mg PO Q4H PRN PRN PRN Reason: Pain (1-10/10) or Fever Albuterol Sulfate (Ventolin Aerosols) 2.5 mg INHALATION Q4H PRN PRN PRN Reason: WHEEZING Enoxaparin Sodium (Lovenox) 40 mg SC DAILY [facility] Last Admin: 07/24/19 08:42 Dose: 40 mg Documented by: Sodium Chloride () 250 mls @ 15 mls/hr IV .[id number] PRN PRN Reason: Saline Flush Last Infusion: 07/25/19 06:33 Dose: 0 mls/hr Documented by: Sodium Chloride () 250 mls @ 15 mls/hr IV .[id number] PRN PRN Reason: Additional IVPB Infusion Morphine Sulfate () 2 - 4 mg IV Q2H PRN PRN PRN Reason: Pain Score 4-10/10 Last Admin: 07/24/19 05:18 Dose: 2 mg Documented by: Morphine Sulfate () 2 - 4 mg IV Q2H PRN PRN PRN Reason: Pain Score 4-10/10 Last Admin: 07/23/19 15:54 Dose: 4 mg Documented by: Ondansetron HCl (Zofran) 4 mg IV Q6H PRN PRN PRN Reason: NAUSEA Oxycodone HCl (Oxyir) 5 - 10 mg PO Q4H PRN PRN PRN Reason: Pain Score 4-10/10 Sodium Chloride () 10 - 40 ml IV UD PRN PRN Reason: SALINE FLUSH Last Admin: 07/23/19 17:12 Dose: 10 ml Documented by: Throat Lozenges (Cepacol Sore Throat Lozenge) 1 lozenge MUCOUS MEM Q2H PRN PRN PRN Reason: sore thoart Last Admin: 07/24/19 05:23 Dose: 1 lozenge Documented by: Medical Necessity - Tobacco Use Smoking Status: Never smoker Assessment/Plan All Active Problems Acute diverticulitis of intestine (Acute) Free intraperitoneal air (Acute) Sepsis (Acute) Perforation of sigmoid colon due to diverticulitis (Acute) 44-year-old male status post sigmoid colectomy for perforated diverticulitis 1. Patient reports that he is doing better today. He had a nonbloody bowel movement this morning and is still passing gas. He tolerated clears. I will advance him to a regular diet and possibly discharge home today if okay with ID. Frankie Hickman MD Pager: [facility] [address] [place] [address] [address] [place] [address] Office:
[2019-07-25 07:46] VITALS: BP 134/93; PULSE 88; RESP 17; TEMP 36.8; O2SAT 94
[2019-07-25] MEDS: Enoxaparin 40 MG/0.4 ML Syringe SC (07:59)
--- NOTE | 2019-07-25 10:22 | PN.ID_ITS ---
Patient Problems: Active and Suspected Problems Acute diverticulitis of intestine (Acute) Free intraperitoneal air (Acute) Sepsis (Acute) Perforation of sigmoid colon due to diverticulitis (Acute) Subjective: Feeling better, ate breakfast, no abd pain, no fever - Physical Exam Vitals/I&O's: Vital Signs Temp Pulse Resp BP Pulse Ox 98.2 F 88 17 134/93 H 94 07/25/19 07:46 07/25/19 07:46 07/25/19 07:46 07/25/19 07:46 07/25/19 07:46 Oxygen Flow Rate (L/min) 2 Oxygen Delivery Method Room Air Weight: 140.614 kg Body Mass Index (BMI) 39.8 Intake and Output for Last 24 Hours 07/23/19 07/24/19 07/25/19 23:59 23:59 23:59 Intake Total 3802.42 / 3802.42 1425.25 / 1425.25 Output Total 1750 / 1750 750 / 750 Balance 2052.42 / 2052.42 675.25 / 675.25 General: Alert, Cooperative, No apparent distress Lungs: Clear to auscultation, Normal air movement Cardiovascular: Regular rate, Regular Rhythm Abdomen: Soft, Non Tender, Non-Distended Skin: No rashes Microbiology Past 72 Hours 07/22/19 15:24 Blood Culture (Wb) - Anticubital Right Blood Culture - Preliminary Bacteroides thetaiotaomicron 07/22/19 15:28 Blood Culture (Wb) - Arm Left Blood Culture - Preliminary Laboratory Results 07/25/19 05:45: WBC 11.0, RBC 4.22 L, Hgb 12.7 L, Hct 39.5 L, MCV 93.6, MCH 30.1, MCHC 32.2, RDW Std Deviation 45.9 H, RDW Coeff of Emir 13.3, Plt Count 191, MPV 11.3, Immature Gran % (Auto) 0.700, Neut % (Auto) 73.1 H, Lymph % (Auto) 16.9 L, [place] % (Auto) 6.6, Eos % (Auto) 2.5, Baso % (Auto) 0.2, Absolute Neuts (auto) 8.0 H, Absolute Lymphs (auto) 1.85, Nucleated RBC % 0 07/25/19 05:45: Sodium 144, Potassium 3.8, Chloride 114 H, Carbon Dioxide 25.0, Anion Gap 5, BUN 11, Creatinine 0.87, Estim Creat Clear Calc 124.66, Est GFR (MDRD) Af Amer 123, Est GFR (MDRD) Non-Af 101, BUN/Creatinine Ratio 12.7, Glucose 93, Calcium 8.9 Current Medications Acetaminophen (Tylenol) 650 mg PO Q4H PRN PRN PRN Reason: Pain (1-10/10) or Fever Albuterol Sulfate (Ventolin Aerosols) 2.5 mg INHALATION Q4H PRN PRN PRN Reason: WHEEZING Enoxaparin Sodium (Lovenox) 40 mg SC DAILY [facility] Last Admin: 07/25/19 07:59 Dose: 40 mg Documented by: Sodium Chloride () 250 mls @ 15 mls/hr IV .[id number] PRN PRN Reason: Saline Flush Last Infusion: 07/25/19 06:33 Dose: 0 mls/hr Documented by: Sodium Chloride () 250 mls @ 15 mls/hr IV .[id number] PRN PRN Reason: Additional IVPB Infusion Morphine Sulfate () 2 - 4 mg IV Q2H PRN PRN PRN Reason: Pain Score 4-10/10 Last Admin: 07/24/19 05:18 Dose: 2 mg Documented by: Morphine Sulfate () 2 - 4 mg IV Q2H PRN PRN PRN Reason: Pain Score 4-10/10 Last Admin: 07/23/19 15:54 Dose: 4 mg Documented by: Ondansetron HCl (Zofran) 4 mg IV Q6H PRN PRN PRN Reason: NAUSEA Oxycodone HCl (Oxyir) 5 - 10 mg PO Q4H PRN PRN PRN Reason: Pain Score 4-10/10 Sodium Chloride () 10 - 40 ml IV UD PRN PRN Reason: SALINE FLUSH Last Admin: 07/23/19 17:12 Dose: 10 ml Documented by: Throat Lozenges (Cepacol Sore Throat Lozenge) 1 lozenge MUCOUS MEM Q2H PRN PRN PRN Reason: sore thoart Last Admin: 07/24/19 05:23 Dose: 1 lozenge Documented by: Medical Necessity - Tobacco Use Smoking Status: Never smoker Route of nutrition/ use of supplements: [] Nutritional Intake: [] IV Site: [] [place] Catheter: [] - Assessment/Plan Antibiotics: [] Assessment/Plan: [] Active and Suspected Problems Acute diverticulitis of intestine (Acute) Free intraperitoneal air (Acute) Sepsis (Acute) Perforation of sigmoid colon due to diverticulitis (Acute) bacteroides bacteremia due to abd perforation - s/p resection 07/22/[address] Hickman. On zosyn, feeling better. D/c home today on 3 more days of augmentin. Will follow
--- NOTE | 2019-07-25 13:31 | DCINST_ITS ---
Discharge Diet: Light diet - advance as tolerated Discharge Activity: May Not Drive - No driving for 1 week or while taking narcotic pain meds., May Shower Lifting Restrictions: 20 lbs for 4 weeks Call your doctor if your incision/area has: Continuous Slow Oozing, Sudden Increased Bleeding, Increased Pain/ Swelling, Increased Redness, Foul Smelling Discharge, Swelling at the incision site Call your doctor if you observe: Fever of 101 or Higher Suture Line Care: Avoid Pulling/Pushing, Avoid Pinching/Bending Remove Dressing in (days):: 1 Cleanse incision/area with: Soap & Water Allergies/Adverse Reactions: Allergies No Known Allergies Allergy (Verified 07/22/19 21:45) Medications to take at Discharge Albuterol IH (ProAir) [Proair Hfa] 1 - 2 puff INHALATION Q4H PRN PRN 07/22/19 Amoxicillin/Potassium Clav [Augmentin 875-125 Tablet] 1 ea PO BID #6 tab 07/25/19 Oxycodone [Oxyir] 5 - 10 mg PO Q4H PRN PRN 5 Days #15 tablet 07/25/19 The following prescriptions were given: Amoxicillin/Potassium Clav [Augmentin 875-125 Tablet] 1 ea PO BID #6 tab Transmission Status: Received by [facility] Oxycodone [Oxyir] 5 - 10 mg PO Q4H PRN PRN 5 Days #15 tablet PRN Reason: Pain Score 4-10/10 Transmission Status: Sent to [facility] Test Results: Test results from this visit will be discussed in further detail at your follow- up appointment, if applicable. Please Follow Up With: Frankie Hickman MD When: Please call to schedule 1 week follow up appointment. [phone]
--- NOTE | 2019-07-25 13:33 | DS.PCM_ITS ---
Discharge Date and Diagnosis - Problem List Patient Problems: Active and Suspected Problems Acute diverticulitis of intestine (Acute) Free intraperitoneal air (Acute) Sepsis (Acute) Perforation of sigmoid colon due to diverticulitis (Acute) Date of Admission: 07/22/19 Date of Discharge: 07/25/19 - Primary Discharge Diagnosis Active and Suspected Problems Acute diverticulitis of intestine (Acute) Free intraperitoneal air (Acute) Sepsis (Acute) Perforation of sigmoid colon due to diverticulitis (Acute) Hospital Course and Treatment Imaging Results: Clinical Impression(s) from Imaging Studies Abdomen/Pelvis CT 07/22/19 14:14 IMPRESSION: Acute diverticulitis with perforation and free intraperitoneal air. Electronically Signed: Sivan Rincon MD at 15:21 EST Tel , Service support , ADDENDUM: 07/22/19 1534 IMPRESSION: Acute diverticulitis with perforation and free intraperitoneal air. N.B. : The above information has been verbally conveyed by Sivan Rincon MD to TRACI Quintana, on 07/22/2019 15:27:57 (ET). Electronically Signed: Sivan Rincon MD at 15:21 EST Tel , Service support , Infectious disease Operations: colectomy Procedures: None Summary of Care Provided: The patient is a 44 year old M presented with free air. He was taken emergently for a laparoscopic converted to open sigmoid colectomy with anastomosis. He was placed on the floor and blood cultures came back positive for E. coli. Patient was continued on antibiotics and once he started to have bowel function he was started on clear liquids. The following day after tolerating clear liquids advance as tolerated and once he was tolerating regular diet was discharged home in stable condition. Patient Problems: Active and Suspected Problems Acute diverticulitis of intestine (Acute) Free intraperitoneal air (Acute) Sepsis (Acute) Perforation of sigmoid colon due to diverticulitis (Acute) - Physical Exam Vitals/I&O's: Vital Signs Temp Pulse Resp BP Pulse Ox 98.2 F 88 17 134/93 H 94 07/25/19 07:46 07/25/19 07:46 07/25/19 07:46 07/25/19 07:46 07/25/19 07:46 Oxygen Flow Rate (L/min) 2 Oxygen Delivery Method Room Air Weight: 310 lb 0.013 oz Body Mass Index (BMI) 39.8 Intake and Output for Last 24 Hours 07/23/19 07/24/19 07/25/19 23:59 23:59 23:59 Intake Total 3802.42 / 3802.42 1789.50 / 1789.50 Output Total 1750 / 1750 750 / 750 Balance 2052.42 / 2052.42 1039.50 / 1039.50 Microbiology Past 72 Hours 07/22/19 15:24 Blood Culture (Wb) - Anticubital Right Blood Culture - Preliminary Bacteroides thetaiotaomicron 07/22/19 15:28 Blood Culture (Wb) - Arm Left Blood Culture - Preliminary Laboratory Results 07/25/19 05:45: WBC 11.0, RBC 4.22 L, Hgb 12.7 L, Hct 39.5 L, MCV 93.6, MCH 30.1, MCHC 32.2, RDW Std Deviation 45.9 H, RDW Coeff of Emir 13.3, Plt Count 191, MPV 11.3, Immature Gran % (Auto) 0.700, Neut % (Auto) 73.1 H, Lymph % (Auto) 16.9 L, [place] % (Auto) 6.6, Eos % (Auto) 2.5, Baso % (Auto) 0.2, Absolute Neuts (auto) 8.0 H, Absolute Lymphs (auto) 1.85, Nucleated RBC % 0 07/25/19 05:45: Sodium 144, Potassium 3.8, Chloride 114 H, Carbon Dioxide 25.0, Anion Gap 5, BUN 11, Creatinine 0.87, Estim Creat Clear Calc 124.66, Est GFR (MDRD) Af Amer 123, Est GFR (MDRD) Non-Af 101, BUN/Creatinine Ratio 12.7, Glucose 93, Calcium 8.9 Current Medications Acetaminophen (Tylenol) 650 mg PO Q4H PRN PRN PRN Reason: Pain (-02/23) or Fever Albuterol Sulfate (Ventolin Aerosols) 2.5 mg INHALATION Q4H PRN PRN PRN Reason: WHEEZING Enoxaparin Sodium (Lovenox) 40 mg SC DAILY FRANC Last Admin: 07/25/19 07:59 Dose: 40 mg Documented by: Sodium Chloride () 250 mls @ 15 mls/hr IV .[id number] PRN PRN Reason: Saline Flush Last Infusion: 07/25/19 11:30 Dose: 0 mls/hr Documented by: Sodium Chloride () 250 mls @ 15 mls/hr IV .[id number] PRN PRN Reason: Additional IVPB Infusion Morphine Sulfate () 2 - 4 mg IV Q2H PRN PRN PRN Reason: Pain Score 4-10/10 Last Admin: 07/24/19 05:18 Dose: 2 mg Documented by: Morphine Sulfate () 2 - 4 mg IV Q2H PRN PRN PRN Reason: Pain Score 4-10/10 Last Admin: 07/23/19 15:54 Dose: 4 mg Documented by: Ondansetron HCl (Zofran) 4 mg IV Q6H PRN PRN PRN Reason: NAUSEA Oxycodone HCl (Oxyir) 5 - 10 mg PO Q4H PRN PRN PRN Reason: Pain Score 4-10/10 Sodium Chloride () 10 - 40 ml IV UD PRN PRN Reason: SALINE FLUSH Last Admin: 07/23/19 17:12 Dose: 10 ml Documented by: Throat Lozenges (Cepacol Sore Throat Lozenge) 1 lozenge MUCOUS MEM Q2H PRN PRN PRN Reason: sore thoart Last Admin: 07/24/19 05:23 Dose: 1 lozenge Documented by: Discharge Diet: Light diet - advance as tolerated Discharge Activity: May Not Drive - No driving for 1 week or while taking narcotic pain meds., May Shower Call your doctor if your incision/area has: Continuous Slow Oozing, Sudden Increased Bleeding, Increased Pain/ Swelling, Increased Redness, Foul Smelling Discharge, Swelling at the incision site Call your doctor if you observe: Fever of 101 or Higher Suture Line Care: Avoid Pulling/Pushing, Avoid Pinching/Bending Remove Dressing in (days):: 1 Cleanse incision/area with: Soap & Water Home Medications: Medications to take at Discharge Albuterol IH (ProAir) [Proair Hfa] 1 - 2 puff INHALATION Q4H PRN PRN 07/22/19 Amoxicillin/Potassium Clav [Augmentin 875-125 Tablet] 1 ea PO BID #6 tab 07/25/19 Oxycodone [Oxyir] 5 - 10 mg PO Q4H PRN PRN 5 Days #15 tablet 07/25/19 Following Prescrptions Were Given to Patient: Amoxicillin/Potassium Clav [Augmentin 875-125 Tablet] 1 ea PO BID #6 tab Transmission Status: Received by [facility] Oxycodone [Oxyir] 5 - 10 mg PO Q4H PRN PRN 5 Days #15 tablet PRN Reason: Pain Score 4-02/23 Transmission Status: Sent to [facility] Primary Care Physician: Chago Campos MD [Primary Care Provider] - Please Follow Up With: Frankie Hickman MD When: Please call to schedule 1 week follow up appointment. [phone] Medical Necessity - Tobacco Use Smoking Status: Never smoker Meaningful Use Info Meaningful Use Diagnoses (Choose all that apply): None applicable
[2019-07-25 13:55] VITALS: BP 141/86; PULSE 85; RESP 18; TEMP 36.9; O2SAT 94
== END 2019-07-25 15:45 | disposition home or self-care (01) | DRG 854 ==
LOC: ED 14:18 → SDC 15:38 → ACINP 15:39 → SDC 16:06 → MS3 16:09
PROVIDERS: Admitting Provider Surgery; Emergency Provider Physician Assistant Medical; Visit Provider Surgery
PROC: 0DTN0ZZ Resection of Sigmoid Colon, Open Approach (ICD-10-PCS; CPT 44204; principal; 2019-07-22 16:30)
DX: A41.9 Sepsis, unspecified organism (principal); K57.20 Diverticulitis of large intestine with perforation and abscess without bleeding; Z53.31 Laparoscopic surgical procedure converted to open procedure
CPT/HCPCS: 36415; 74176; 80048; 81001; 83605; 83735; 84100; 85025; 87040; 87077; 88304; 88305; 88307; 93005; 99251; 99284; J7030; J7050; A4216; C1760; G0463; J2405